=== PATIENT | male | born 1985 | race American Indian/Alaskan Native ===

== ENCOUNTER 2021-04-29 19:03 | Emergency (ER) | payer BC ==
[2021-04-29 19:18] VITALS: BP 133/83
--- NOTE | 2021-04-29 21:15 | Emergency Department Report ---
ED General Adult HPI - General Chief complaint: Skin/Abscess/Foreign Body Stated complaint: BUMP RT AXILLA Time Seen by Provider: 04/29/21 20:11 Source: patient Mode of arrival: Ambulatory Limitations: No Limitations - History of Present Illness Initial comments: 35-year-old -[place] male patient with history of diabetes presents with complaints of swelling and pain under the right armpit x2 days. Patient states the area began to drain today and the pain decreased. He rates his current pain as a 2/10 in severity. Patient states prior to the swelling and pain, there has been a cyst/swollen lymph node in the area for years. Patient states he had the area evaluated by his PCP who stated there was nothing to worry about. He denies any fever/chills/sweats or difficulty moving his arm/shoulder - Related Data Previous Rx's Medication Instructions Recorded Last Taken Type Ibuprofen [Motrin 800 MG tab] 800 mg PO Q8HR PRN #20 tablet 04/29/21 Unknown Rx Sulfamethoxazole/Trimethoprim 1 each PO BID 10 Days #20 tablet 04/29/21 Unknown Rx [Bactrim DS TAB] traMADoL [Ultram 50 MG tab] 50 - 100 mg PO Q8HR PRN #12 tablet 04/29/21 Unknown Rx ED Review of Systems ROS: Stated complaint: BUMP RT AXILLA Other details as noted in HPI Constitutional: denies: fever, malaise Musculoskeletal: denies: arthralgia Skin: lesions. denies: change in color Neurological: denies: numbness, paresthesias ED Past Medical Hx - Past Medical History Hx Diabetes: Yes - Surgical History Past Surgical History?: No - Medications Home Medications: Home Medications Medication Instructions Recorded Confirmed Last Taken Type Ibuprofen [Motrin 800 MG tab] 800 mg PO Q8HR PRN #20 tablet 04/29/21 Unknown Rx Sulfamethoxazole/Trimethoprim 1 each PO BID 10 Days #20 tablet 04/29/21 Unknown Rx [Bactrim DS TAB] traMADoL [Ultram 50 MG tab] 50 - 100 mg PO Q8HR PRN #12 tablet 04/29/21 Unknown Rx ED Physical Exam - General Limitations: No Limitations General appearance: alert, in no apparent distress - Head Head exam: Present: atraumatic, normocephalic - Eye Eye exam: Present: normal appearance - Neck Neck exam: Present: normal inspection - Respiratory Respiratory exam: Absent: respiratory distress - Cardiovascular Cardiovascular Exam: Present: regular rate - Neurological Exam Neurological exam: Present: alert, oriented X3 - Psychiatric Psychiatric exam: Present: normal affect, normal mood - Skin Skin exam: Present: warm, dry, other (Approximately 4 to 5 cm round swollen abscess noted to right axilla with small area of open active drainage; no surrounding cellulitic changes are noted; full range of motion of the shoulder normal noted). Absent: rash ED Course Vital Signs 04/29/21 19:17 Temperature 98.8 F Pulse Rate 104 H Respiratory 18 Rate Blood Pressure 133/83 O2 Sat by Pulse 99 Oximetry - I & D Shoulder Type of Procedure: Simple Site: Right axilla Blade Size: 11 I & D Procedure: betadine prep, sterile drapes applied, sterile dressing applied, gauze wick placed Progress: 10 cc of lidocaine 1% without epi used to anesthetize area. Moderate purulent drainage obtained from wound along with sebaceous cyst material. Patient tolerated procedure well without any immediate complications. Minimal bleeding occurred. ED Medical Decision Making - Medical Decision Making 35-year-old -[place] male patient with history of diabetes presents with complaints of swelling and pain under the right armpit x2 days. Patient states the area began to drain today and the pain decreased. He rates his current pain as a 2/10 in severity. Patient states prior to the swelling and pain, there has been a cyst/swollen lymph node in the area for years. Patient states he had the area evaluated by his PCP who stated there was nothing to worry about. He denies any fever/chills/sweats or difficulty moving his arm/shoulder Infected sebaceous cyst incised and drained. Patient placed on Bactrim. Discussed wound care and signs and symptoms that should prompt immediate return to the emergency department with patient verbalizes understanding. He is well- appearing, his vitals are normal, he is stable for discharge home. Patient to return to the ED in 3 days for packing removal Critical care attestation.: If time is entered above; I have spent that time in minutes in the direct care of this critically ill patient, excluding procedure time. ED Disposition Clinical Impression: Infected sebaceous cyst Disposition: HOME / SELF CARE / HOMELESS Is pt being admited?: No Condition: Stable Instructions: Epidermal Cyst, Incision and Drainage Prescriptions: Sulfamethoxazole/Trimethoprim [Bactrim DS TAB] 1 each PO BID 10 Days #20 tablet Ibuprofen [Motrin 800 MG tab] 800 mg PO Q8HR PRN #20 tablet PRN Reason: pain traMADoL [Ultram 50 MG tab] 50 - 100 mg PO Q8HR PRN #12 tablet PRN Reason: Pain , Severe (7-10) Referrals: PRIMARY CARE, [Referring] - 3-5 Days Forms: Work/School Release Form(ED)
== END 2021-04-29 21:52 | disposition home or self-care (01) ==
LOC: ED 19:03
DX: L72.3 Sebaceous cyst (principal); E11.8 Type 2 diabetes mellitus with unspecified complications
CPT/HCPCS: 99282